=== PATIENT | female | born 1965 | race Caucasian/White ===

== ENCOUNTER 2016-08-05 09:13 | Day surgery (SDC) | payer BC ==
--- NOTE | 2016-08-04 12:58 | PCM.PREANE ---
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 Respiratory: Reports: no symptoms Cardiovascular: Reports: no symptoms GI: Reports: no symptoms Other: Reports: none - PHYSICAL ASSESSMENT Height: 5 ft 6 in Weight: 82.554 kg ASA Class: 3 Mental Status: alert & oriented x3 Airway Class: Mallampati = 3 Dentition: Reports: dentures (upper) Thyro-Mental Finger Breadths: 2 Mouth Opening Finger Breadths: 3 ROM/Head Extension: full Respiratory Status: lungs clear to auscultation bilaterally Cardiovascular Status: regular rate & rhythm, normal S1, S2, no murmur, blood pressure WNL - ALLERGIES Allergies/Adverse Reactions: Allergies Allergy/AdvReac Type Severity Reaction Status Date / Time talc Allergy Severe Hives Verified 02/15/15 07:56 zolpidem tartrate Allergy Severe Tachycardia Verified 02/15/15 07:56 [From Ambien] latex Allergy Intermediate Hives Verified 02/15/15 07:56 adhesives Allergy Mild Blisters Uncoded 02/15/15 07:56 - ANESTHESIA PLAN Free Text/Narrative:: No previous EKG. One will be done in AM d/t HTN and DM Anesthesia Type Planned: MAC - ACKNOWLEDGEMENTS Pt an appropriate candidate for the planned anesthesia: Yes Alternatives and risks of anesthesia discussed w pt/guardian: Yes Pt/Guardian understands and agree with anesthesia plan: Yes PreAnesthesia Questionnaire HEENT History: Reports: Other (see below) Other HEENT History: top denture Cardiovascular History: Reports: Hypertension Respiratory History: Reports: Sleep apnea Gastrointestinal History: Reports: GERD, Other (see below) (Hx of colon CA with bowel resection.) Other Gastrointestinal History: heartburn in the past, none lately Genitourinary History: Reports: None Other Musculoskeletal History: Limb Dystonia, Edema extremeties Neurological History: Reports: Neuropathy, peripheral (Pain in her feet, L4,5, S1 fusion. Denies any cervical spine related pain at this time.) Psychiatric History: Reports: None Endocrine/Metabolic History: Reports: Other (see below) Other Endocrine/Metabolic History: Metabolic Syndrome, borderline DM. Random blood glucose checks at this time do not warrant traetment Hematologic History: Reports: None Immunologic History: Reports: None Oncologic (Cancer) History: Reports: Colon Dermatologic History: Reports: None - Infectious Disease History Infectious Disease History: Reports: None - Past Surgical History Head Surgeries/Procedures: Reports: None GI Surgical History: Reports: Colon, Colonoscopy Other GI Surgeries/Procedures: Colon Resection for Cancer Female Surgical History: Reports: Hysterectomy Other Neurological Surgeries/Procedures: Lumbar L-4,L-5,S-1 repair with Titanium Musculoskeletal Surgical History: Reports: Shoulder surgery Other Musculoskeletal Surgeries/Procedures:: Right rotator cuff reapir - SUBSTANCE USE Smoking Status *Q: Never Smoker Recreational Drug Use History: No - HOME MEDS Home Medications: Home Meds Lisinopril 5 mg PO DAILY 12/01/13 [History] Ibuprofen [Advil] 4 tab PO ASDIRECTED PRN 07/31/16 [History] - CURRENT (IN HOUSE) MEDS Current Meds: Current Medications Lactated Ringer's (Ringers, Lactated) 1,000 mls @ 125 mls/hr IV ASDIRECTED MARILYNN
[~2016-08-05 09:13] MED LIST: Lactated Ringers 1,000 ML IV SCH; Lidocaine 2% 5 ML SDV ONE; Propofol 200 MG/20 ML SDV ONE; fentaNYL 100 MCG/2 ML SDV ONE
[2016-08-05] MEDS ORDERED: fentaNYL 100 MCG/2 ML SDV ONE (11:17)
--- NOTE | 2016-08-05 11:50 | PCM.OPNOTE ---
- General Post-Op/Procedure Note Date of Surgery/Procedure: 08/05/16 Operative Procedure(s): Colonoscopy with cold sigmoid polypectomy Pre Op Diagnosis: Personal history of colon cancer. Rectal bleeding. Change in bowel habits. Post-Op Diagnosis: Sigmoid polyp Anesthesia Technique: MAC (ASA III) Primary Surgeon: Charlie Juarez Operations Mgr: Laura Mcgee Condition: Good Free Text/Narrative:: Dictation [id number]
--- NOTE | 2016-08-05 11:53 | PCM.POSTAN ---
POST ANESTHESIA ASSESSMENT - MENTAL STATUS Mental Status: alert, oriented - RESPIRATORY Respiratory Status: respiratory rate WNL, airway patent, O2 saturation stable - CARDIOVASCULAR CV Status: pulse rate WNL, blood pressure stable - GASTROINTESTINAL GI Status: no symptoms - POST OP HYDRATION Hydration Status: adequate & stable
[2016-08-05] MEDS ORDERED: Lactated Ringers 1,000 ML IV SCH (12:00)
--- NOTE | 2016-08-05 12:03 | PCM48HPAN ---
Post Anesthesia Note - EVALUATION WITHIN 48HRS OF ANESTHETIC Vital Signs in Normal Range: Yes Patient Participated in Evaluation: Yes Respiratory Function Stable: Yes Airway Patent: Yes Cardiovascular Function Stable: Yes Hydration Status Stable: Yes Pain Control Satisfactory: Yes Nausea and Vomiting Control Satisfactory: Yes Mental Status Recovered: Yes
[2016-08-05 12:12] VITALS: BP 157/79
--- NOTE | 2016-08-06 06:18 | OR ---
SURGEON: Charlie Juarez M.D. DATE OF PROCEDURE: 08/05/2016 OPERATION PERFORMED: Colonoscopy with cold sigmoid polypectomy. SUPERVISOR NET MAKING: Dr. Mcgee. ANESTHESIA: MAC ASA CLASSIFICATION: III. PREOPERATIVE DIAGNOSIS: Personal history of colon cancer with change in bowel habits and rectal bleeding. POSTOPERATIVE DIAGNOSIS: Small sigmoid polyp. DESCRIPTION OF PROCEDURE: The patient was taken to the endoscopy room and positioned on the endoscopy table in the left lateral decubitus position. Time-out was called for appropriate identification of patient and procedure. Monitored anesthesia care was provided. The colonoscope was inserted into the rectum and advanced with minimal difficulty to the cecum where the colonoscope was retroflexed to visualize the ascending colon from below. The colonoscope was then straightened and slowly withdrawn. The cecum, ascending colon, hepatic flexure, transverse colon, splenic flexure, and descending colon showed no tumors, polyps, diverticula, or angiodysplastic changes. One small polyp was encountered in the sigmoid colon and removed with cold biopsy forceps. No large polyps were encountered and there was no significant scarring noted anywhere in the sigmoid colon. The colonoscope was withdrawn to the rectum and retroflexed to visualize the anal orifice from above. No tumors or polyps were seen and there were no acute hemorrhoidal changes. The colonoscope was then straightened, the rectum aspirated, and the colonoscope removed. TARAH VILLAFUERTE /[id number]
== END 2016-08-05 12:50 | disposition home or self-care (01) ==
LOC: MW.SDS 09:13
PROVIDERS: ATTEND Surgery
PROC: 0DBN8ZX Excision of Sigmoid Colon, Via Natural or Artificial Opening Endoscopic, Diagnostic (ICD-10-PCS; principal; 2016-08-05)
DX: D12.5 Benign neoplasm of sigmoid colon (principal); Z85.038 Personal history of other malignant neoplasm of large intestine; E11.9 Type 2 diabetes mellitus without complications; K21.9 Gastro-esophageal reflux disease without esophagitis; E78.1 Pure hyperglyceridemia; G47.30 Sleep apnea, unspecified; G47.10 Hypersomnia, unspecified; Z88.8 Allergy status to other drugs, medicaments and biological substances; Z91.040 Latex allergy status; E78.00 Pure hypercholesterolemia, unspecified; I10 Essential (primary) hypertension
CPT/HCPCS: 45380; 88305; 93005; J3010; J7120; 00810; J2704